=== PATIENT | male | born 1960 | race Caucasian/White ===

== ENCOUNTER 2016-06-29 13:18 | Observation (INO) | payer MEDICAID ==
[~2016-06-29] VITALS: Ht 175.3 cm; Wt 68.0 kg
[~2016-06-29 13:18] MED LIST: ALBU8.5H3 INH; ALLO100T30 PO; AMLO10TA2 PO; ASPI-496 PO; ASPI-515 PO; ATOR20TA9 PO; BENA20TA2 PO; CARV6.252 PO; CIPR100T PO; CLOP75TA PO; CLOP75TA22 PO; DOCU-30 PO; FURO20TA3 PO; FURO40TA6 PO; HYDR-3240 PO; HYDR-3307 PO; METF500T4 PO; OLAN10TA3 PO; OLAN10TA9 PO; OXYC10TA32 PO; OXYC1TAB7 PO; POTA20TA14 PO; TAMS-11 PO; TEMA15CA PO; TIOT18CA INH
[2016-06-29] MEDS ORDERED: MORPHINE SULFATE 4 MG/ML, 1ML IVPush PRN ×2 (14:00→15:30)
[2016-06-29] MEDS ORDERED: ASPIRIN 81 MG TABLET CHEW PO ONE (14:00)
[2016-06-29] MEDS ORDERED: SODIUM CHLORIDE FLUSH 10ML SYR IVF ONE (14:00)
[2016-06-29] MEDS ORDERED: ONDANSETRON 2MG/ML, 2ML IVPush ONE (14:00)
[2016-06-29 14:20] LABS: HEMOGLOBIN 15.6 g/dL (13.7-18.0)
[2016-06-29] MEDS ORDERED: MORPHINE SULFATE 4 MG/ML, 1ML ONE (14:27)
[2016-06-29] MEDS ORDERED: NITROGLYCERIN SINGLE TAB 0.4 MG SL ONE (14:28)
[2016-06-29] MEDS ORDERED: ONDANSETRON 2MG/ML, 2ML ONE (14:28)
[2016-06-29 14:34] LABS: BLOOD UREA NITROGEN 17 mg/dL (7-18)
[2016-06-29] MEDS: NITROGLYCERIN SINGLE TAB 0.4 MG SL PRN ×3 (14:35→14:45)
[2016-06-29 14:39] LABS: IS PT STATUS REG ER OR PRE ER? YES
[2016-06-29] MEDS ORDERED: ASPIRIN 81 MG TABLET CHEW ONE (14:52)
[2016-06-29] MEDS ORDERED: SODIUM CHLORIDE FLUSH 10ML SYR IVF PRN (15:00)
[2016-06-29] MEDS ORDERED: POLYETHYLENE GLYCOL 17 GM PACKET PO PRN (15:30)
[2016-06-29] MEDS ORDERED: DOCUSATE 100 MG CAPSULE PO PRN (15:30)
[2016-06-29] MEDS ORDERED: ACETAMINOPHEN 325 MG TABLET PO PRN (15:30)
[2016-06-29] MEDS ORDERED: TEMPLATE NON-FORMULARY MED. (Albuterol Sulfate (Proair Hfa) 0 PUFF) INH PRN (15:30)
[2016-06-29] MEDS ORDERED: ONDANSETRON 2MG/ML, 2ML IVP PRN (15:30)
[2016-06-29] MEDS ORDERED: BISACODYL 10 MG SUPP PR PRN (15:30)
[2016-06-29] MEDS ORDERED: LABETALOL 5MG/ML, 20ML IV PRN (15:30)
[2016-06-29] MEDS ORDERED: BENAZEPRIL 20 MG TABLET PO SCH (15:30)
[2016-06-29 17:34] VITALS: BP 160/100
[2016-06-29] MEDS: ENOXAPARIN 40 MG/0.4 ML SQ SCH (18:24)
[2016-06-29 18:30] LABS: IS PT STATUS REG ER OR PRE ER? NO
[2016-06-29 19:25] VITALS: BP 158/88
[2016-06-29] MEDS: HYDROcodone/APAP 5/325 TABLET PO PRN (20:57)
[2016-06-29] MEDS: SODIUM CHLORIDE FLUSH 10ML SYR IVF SCH (20:57)
[2016-06-29] MEDS ORDERED: NICOTINE 7 MG/24 HR PATCH.TD24 TD SCH (21:00)
[2016-06-29 23:04] VITALS: BP 164/92
[2016-06-30 00:44] LABS: IS PT STATUS REG ER OR PRE ER? NO
[2016-06-30 02:04] VITALS: BP 159/73
[2016-06-30 07:38] VITALS: BP 172/95
[2016-06-30] MEDS: SODIUM CHLORIDE FLUSH 10ML SYR IVF SCH (08:00)
[2016-06-30] MEDS ORDERED: REGADENOSON 0.4 MG/5 ML SYRINGE ONE (08:39)
[2016-06-30] MEDS ORDERED: AMLODIPINE 5 MG TABLET PO SCH (09:00)
[2016-06-30] MEDS ORDERED: ASPIRIN 81 MG TABLET EC PO SCH (09:00)
[2016-06-30] MEDS: HYDROcodone/APAP 5/325 TABLET PO PRN (12:42)
[2016-06-30] MEDS ORDERED: LABETALOL 5MG/ML, 20ML IV PRN (12:56)
[2016-06-30 13:34] VITALS: BP 158/90
[2016-06-30] MEDS ORDERED: HYDR-3240 PO (14:48)
[2016-06-30] MEDS: ENOXAPARIN 40 MG/0.4 ML SQ SCH (15:30)
[2016-06-30] MEDS ORDERED: AMLO10TA2 PO (20:32)
[2016-06-30] MEDS ORDERED: BENA20TA2 PO (20:32)
== END 2016-06-30 17:12 | disposition home or self-care (01) ==
LOC: ED 14:57 → INTOOBSV 14:58 → EDIP 14:58 → ED 14:59 → 4EST 16:47 → 5SO 22:56 → DCLOUNGE 06-30 17:04
PROVIDERS: ADMIT Internal Medicine; ATTEND Internal Medicine
DX: R07.9 Chest pain, unspecified (principal); I25.10 Atherosclerotic heart disease of native coronary artery without angina pectoris; I25.2 Old myocardial infarction; I11.9 Hypertensive heart disease without heart failure; F17.210 Nicotine dependence, cigarettes, uncomplicated; G30.9 Alzheimer's disease, unspecified; F02.80 Dementia in other diseases classified elsewhere, unspecified severity, without behavioral disturbance, psychotic disturbance, mood disturbance, and anxiety; E11.9 Type 2 diabetes mellitus without complications; J44.9 Chronic obstructive pulmonary disease, unspecified; F20.9 Schizophrenia, unspecified; M10.9 Gout, unspecified; E78.5 Hyperlipidemia, unspecified; M41.9 Scoliosis, unspecified; G89.29 Other chronic pain; M54.9 Dorsalgia, unspecified; M19.90 Unspecified osteoarthritis, unspecified site; Z59.0 Homelessness; Z87.11 Personal history of peptic ulcer disease; Z95.1 Presence of aortocoronary bypass graft; Z85.9 Personal history of malignant neoplasm, unspecified; Z91.19 Patient's noncompliance with other medical treatment and regimen
CPT/HCPCS: 36415; 71010; 78452; 80048; 80061; 82040; 83880; 84484; 85025; 93005; 93017; 96372; 96374; 96375; 99285; A9502; C9898; G0378; J1650; J2270; J2405; J2785

== ENCOUNTER 2016-07-03 01:17 | Emergency (ER) | payer MEDICAID ==
[~2016-07-03] VITALS: Ht 175.3 cm; Wt 70.2 kg
[2016-07-03 01:18] VITALS: BP 185/94
[2016-07-03] MEDS ORDERED: ACETAMINOPHEN 500 MG TABLET PO ONE (02:20)
[2016-07-03] MEDS ORDERED: ACETAMINOPHEN 500 MG TABLET ONE (02:20)
== END 2016-07-03 03:01 | disposition home or self-care (01) ==
LOC: ED 01:42
DX: S70.01XA Contusion of right hip, initial encounter (principal); I10 Essential (primary) hypertension; E11.9 Type 2 diabetes mellitus without complications; J44.9 Chronic obstructive pulmonary disease, unspecified; E78.5 Hyperlipidemia, unspecified; Z95.1 Presence of aortocoronary bypass graft; W19.XXXA Unspecified fall, initial encounter; Y93.89 Activity, other specified; Y99.8 Other external cause status; Y92.410 Unspecified street and highway as the place of occurrence of the external cause

== ENCOUNTER 2016-08-12 08:08 | Emergency (ER) | payer MEDICAID ==
[~2016-08-12] VITALS: Ht 175.3 cm; Wt 69.0 kg
[2016-08-12 08:10] VITALS: BP 156/83
== END 2016-08-12 09:58 | disposition home or self-care (01) ==
LOC: ED 09:52
DX: R07.89 Other chest pain (principal); J44.9 Chronic obstructive pulmonary disease, unspecified; E11.9 Type 2 diabetes mellitus without complications; I10 Essential (primary) hypertension; M19.90 Unspecified osteoarthritis, unspecified site; F20.9 Schizophrenia, unspecified; E78.5 Hyperlipidemia, unspecified
CPT/HCPCS: 36415; 84484; 93005

== ENCOUNTER 2016-08-21 00:09 | Emergency (ER) | payer MEDICAID ==
[~2016-08-21] VITALS: Ht 175.3 cm; Wt 70.3 kg
[2016-08-21 01:16] VITALS: BP 169/103
== END 2016-08-21 01:28 | disposition home or self-care (01) ==
LOC: ED 00:26
DX: S90.822A Blister (nonthermal), left foot, initial encounter (principal); M79.672 Pain in left foot; E11.9 Type 2 diabetes mellitus without complications; I10 Essential (primary) hypertension; Z95.1 Presence of aortocoronary bypass graft; J44.9 Chronic obstructive pulmonary disease, unspecified; X58.XXXA Exposure to other specified factors, initial encounter; Y93.89 Activity, other specified; Y99.8 Other external cause status; Y92.89 Other specified places as the place of occurrence of the external cause
CPT/HCPCS: 99281

== ENCOUNTER 2016-08-31 16:13 | Emergency (ER) | payer MEDICAID ==
[~2016-08-31] VITALS: Ht 175.3 cm; Wt 72.1 kg
[2016-08-31 16:15] VITALS: BP 160/86
[2016-08-31 17:52] LABS: BLOOD UREA NITROGEN 16 mg/dL (7-18)
[2016-08-31] MEDS ORDERED: HYDROcodone/APAP 5/325 TABLET PO ONE (18:00)
[2016-08-31] MEDS ORDERED: HYDROcodone/APAP 5/325 TABLET ONE (18:25)
== END 2016-08-31 19:09 | disposition home or self-care (01) ==
LOC: ED 18:20
DX: M79.672 Pain in left foot (principal); M79.671 Pain in right foot; M25.572 Pain in left ankle and joints of left foot; M25.571 Pain in right ankle and joints of right foot; I10 Essential (primary) hypertension; G62.9 Polyneuropathy, unspecified; G89.29 Other chronic pain; I25.10 Atherosclerotic heart disease of native coronary artery without angina pectoris; Z87.01 Personal history of pneumonia (recurrent); J44.9 Chronic obstructive pulmonary disease, unspecified; E11.9 Type 2 diabetes mellitus without complications; M10.9 Gout, unspecified; Z95.1 Presence of aortocoronary bypass graft
CPT/HCPCS: 36415; 80048; 83880; 85379; 99284

== ENCOUNTER 2016-09-06 17:34 | Emergency (ER) | payer MEDICAID ==
[~2016-09-06] VITALS: Ht 175.3 cm; Wt 71.1 kg
[2016-09-06 17:42] VITALS: BP 158/102
== END 2016-09-06 19:00 | disposition home or self-care (01) ==
LOC: ED 18:33
DX: K62.89 Other specified diseases of anus and rectum (principal); E78.5 Hyperlipidemia, unspecified; I10 Essential (primary) hypertension; E11.9 Type 2 diabetes mellitus without complications; M19.90 Unspecified osteoarthritis, unspecified site; J44.9 Chronic obstructive pulmonary disease, unspecified; M51.36 Other intervertebral disc degeneration, lumbar region; Z87.891 Personal history of nicotine dependence
CPT/HCPCS: 99283

== ENCOUNTER 2016-09-10 21:18 | Emergency (ER) | payer MEDICAID ==
[~2016-09-10] VITALS: Ht 175.3 cm; Wt 70.0 kg
[2016-09-10] MEDS ORDERED: ACETAMINOPHEN 325 MG TABLET PO ONE (22:00)
[2016-09-10] MEDS ORDERED: ACETAMINOPHEN 325 MG TABLET ONE (22:29)
[2016-09-10] MEDS ORDERED: HYDROcodone/APAP 5/325 TABLET PO ONE (23:30)
[2016-09-10 23:33] VITALS: BP 158/90
[2016-09-12] MEDS ORDERED: ONDANSETRON 2MG/ML, 2ML ONE (10:59)
[2016-09-12] MEDS ORDERED: morphine SULFATE 10 MG/ML, 1ML ONE (10:59)
== END 2016-09-10 23:38 | disposition home or self-care (01) ==
LOC: ED 22:06
DX: S02.601A Fracture of unspecified part of body of right mandible, initial encounter for closed fracture (principal); S02.612A Fracture of condylar process of left mandible, initial encounter for closed fracture; I10 Essential (primary) hypertension; E11.9 Type 2 diabetes mellitus without complications; J44.9 Chronic obstructive pulmonary disease, unspecified; Z87.891 Personal history of nicotine dependence; Y04.0XXA Assault by unarmed brawl or fight, initial encounter; Y93.89 Activity, other specified; Y99.8 Other external cause status; Y92.89 Other specified places as the place of occurrence of the external cause; Z95.1 Presence of aortocoronary bypass graft; I25.110 Atherosclerotic heart disease of native coronary artery with unstable angina pectoris; F20.9 Schizophrenia, unspecified
CPT/HCPCS: 70450; 70486; 72125

== ENCOUNTER 2016-09-12 10:34 | Inpatient (IN) | payer MEDICAID ==
[~2016-09-12] VITALS: Ht 165.1 cm; Wt 68.7 kg
[2016-09-12 15:48] VITALS: BP 206/119
[2016-09-12 17:48] VITALS: BP 159/87
[2016-09-12] MEDS ORDERED: hydrALAzine 20 MG/ML, 1ML IV PRN (19:00)
[2016-09-12 19:19] LABS: BLOOD UREA NITROGEN 16 mg/dL (7-18)
[2016-09-12 19:23] VITALS: BP 187/110
[2016-09-13] MEDS ORDERED: hydrALAzine 20 MG/ML, 1ML IV PRN ×2 (01:00→15:00)
[2016-09-13] MEDS ORDERED: ACETAMINOPHEN 650 MG SUPP PR PRN (01:00)
[2016-09-13 01:01] VITALS: BP 147/84
[2016-09-13] MEDS: LACTATED RINGERS 1,000 ML IV SCH ×2 (01:18→13:20)
[2016-09-13 06:44] VITALS: BP 133/73
[2016-09-13] MEDS: BENAZEPRIL 20 MG TABLET PO SCH (07:41)
[2016-09-13] MEDS: AMLODIPINE 5 MG TABLET PO SCH (07:42)
[2016-09-13] MEDS: MORPHINE SULFATE 4 MG/ML, 1ML IV PRN ×3 (07:55→22:11)
[2016-09-13] MEDS ORDERED: BALANCED SALT OPHTH IRRIG SOLN 18ML ONE (12:52)
[2016-09-13] MEDS ORDERED: OXYMETAZOLINE NASAL SPRAY 0.05%, 15ML ONE (12:52)
[2016-09-13] MEDS ORDERED: LIDOCAINE/PF 1%-EPI 1:200K, 30ML ONE (12:53)
[2016-09-13 12:58] LABS: BLOOD UREA NITROGEN 20 mg/dL (7-18)
[2016-09-13] MEDS ORDERED: MIDAZOLAM 1 MG/ML, 2ML ONE (12:58)
[2016-09-13] MEDS ORDERED: FENTANYL PF 250 MCG/5ML ONE (12:58)
[2016-09-13] MEDS ORDERED: CEFAZOLIN 1,000 MG ONE (13:05)
[2016-09-13] MEDS ORDERED: ONDANSETRON 2MG/ML, 2ML ONE (13:05)
[2016-09-13] MEDS ORDERED: LABETALOL 5MG/ML, 20ML ONE (13:05)
[2016-09-13] MEDS ORDERED: PROPOFOL 10 MG/ML, 20ML ONE (13:05)
[2016-09-13] MEDS ORDERED: SUCCINYLCHOLINE 20 MG/ML, 10ML ONE (13:05)
[2016-09-13] MEDS ORDERED: ROCURONIUM 10 MG/ML ONE (13:05)
[2016-09-13] MEDS ORDERED: LABETALOL 5MG/ML, 20ML IV PRN (15:00)
[2016-09-13] MEDS ORDERED: HYDROmorphone 1 MG/ML, 1ML IV PRN (15:00)
[2016-09-13] MEDS ORDERED: METOPROLOL 1 MG/ML, 5ML IV PRN (15:00)
[2016-09-13] MEDS ORDERED: PROMETHAZINE 25 MG/ML, 1ML IV PRN (15:00)
[2016-09-13] MEDS ORDERED: MEPERIDINE/PF 25MG/0.5ML IVPush PRN (15:00)
[2016-09-13] MEDS ORDERED: ONDANSETRON 2MG/ML, 2ML IVPush PRN (15:00)
[2016-09-13] MEDS ORDERED: OXYcodone 5 MG/5 ML ORAL.SOL UDC PO PRN (15:00)
[2016-09-13] MEDS ORDERED: MIDAZOLAM 1 MG/ML, 2ML IV PRN (15:00)
[2016-09-13] MEDS ORDERED: ALBUTEROL/IPRATROPIUM 2.5MG/0.5MG, 3 ML NPPB PRN (15:00)
[2016-09-13] MEDS ORDERED: FENTANYL PF 100 MCG/2ML IV PRN (15:00)
[2016-09-13] MEDS ORDERED: EPHEDRINE 50 MG/ML, 1ML IVPush PRN (15:00)
[2016-09-13] MEDS ORDERED: ALBUTEROL SULFATE 2.5 MG/3 ML NPPB PRN ×2 (15:00→18:30)
[2016-09-13] MEDS ORDERED: ACETAMINOPHEN 325 MG TABLET PO PRN (15:00)
[2016-09-13] MEDS ORDERED: ACETAMINOPHEN 650 MG/20.3 ML UDC ONE (15:42)
[2016-09-13] MEDS ORDERED: OXYcodone 5 MG/5 ML ORAL.SOL UDC ONE (16:23)
[2016-09-13] MEDS ORDERED: hydrALAzine 20 MG/ML, 1ML ONE (16:34)
[2016-09-13] MEDS ORDERED: DEXTROSE 50%, 50ML SYRINGE IVPush ONE (17:00)
[2016-09-13] MEDS ORDERED: ONDANSETRON 2MG/ML, 2ML IV PRN (18:30)
[2016-09-13 19:27] VITALS: BP 150/89
[2016-09-13 19:30] VITALS: BP 139/86
[2016-09-13 23:21] VITALS: BP 139/75
[2016-09-14 02:03] VITALS: BP 138/83
[2016-09-14] MEDS: MORPHINE SULFATE 4 MG/ML, 1ML IV PRN ×2 (02:29→05:50)
[2016-09-14 06:32] LABS: BLOOD UREA NITROGEN 20 mg/dL (7-18)
[2016-09-14 07:23] VITALS: BP 137/76
[2016-09-14] MEDS ORDERED: AMLODIPINE 5 MG TABLET PO SCH (09:00)
[2016-09-14] MEDS ORDERED: BENAZEPRIL 20 MG TABLET PO SCH (09:00)
[2016-09-14] MEDS: LACTATED RINGERS 1,000 ML IV SCH (09:24)
[2016-09-14] MEDS: AMLODIPINE 5 MG TABLET PO SCH (10:00)
[2016-09-14] MEDS: BENAZEPRIL 20 MG TABLET PO SCH (10:02)
[2016-09-14] MEDS ORDERED: HYDROmorphone 2MG TABLET ONE ×3 (12:59→22:27)
[2016-09-14] MEDS: HYDROmorphone 4MG TABLET PO PRN ×3 (13:01→22:33)
[2016-09-14 13:27] VITALS: BP 136/76
[2016-09-14] MEDS ORDERED: GUAIFENESIN/DM 100-10MG, 5ML UDC PO PRN (20:30)
[2016-09-14 20:33] VITALS: BP 139/84
[2016-09-14] MEDS: AMPICILLIN/SULBACTAM 3 GM in SODIUM CHLORIDE 0.9% 100 ML IV SCH (20:59)
[2016-09-14] MEDS: INSULIN ASPART 100 UNITS/ML, PEN SQ-INSULIN SCH (21:00)
[2016-09-15 01:42] VITALS: BP 138/67
[2016-09-15] MEDS ORDERED: HYDROmorphone 2MG TABLET ONE ×5 (02:45→22:06)
[2016-09-15] MEDS: AMPICILLIN/SULBACTAM 3 GM in SODIUM CHLORIDE 0.9% 100 ML IV SCH ×4 (02:48→20:47)
[2016-09-15] MEDS: HYDROmorphone 4MG TABLET PO PRN ×5 (02:48→22:18)
[2016-09-15 06:33] VITALS: BP 149/80
[2016-09-15] MEDS: INSULIN ASPART 100 UNITS/ML, PEN SQ-INSULIN SCH ×4 (07:00→20:50)
[2016-09-15] MEDS: BENAZEPRIL 20 MG TABLET PO SCH (08:11)
[2016-09-15] MEDS: AMLODIPINE 5 MG TABLET PO SCH (08:11)
[2016-09-15] MEDS: GUAIFENESIN ER 600 MG TABLET PO SCH ×2 (11:05→20:47)
[2016-09-15] MEDS: BENZONATATE 100 MG CAPSULE PO SCH ×3 (11:05→20:47)
[2016-09-15] MEDS ORDERED: GUAIFENESIN/DM 100-10MG, 5ML UDC PO PRN (12:30)
[2016-09-15 13:37] VITALS: BP 128/69
[2016-09-15 20:44] VITALS: BP 137/70
[2016-09-16 00:04] VITALS: BP 130/82
[2016-09-16 01:18] VITALS: BP 158/81
[2016-09-16] MEDS ORDERED: HYDROmorphone 2MG TABLET ONE ×2 (02:27→06:27)
[2016-09-16] MEDS: AMPICILLIN/SULBACTAM 3 GM in SODIUM CHLORIDE 0.9% 100 ML IV SCH ×4 (02:30→20:34)
[2016-09-16] MEDS: HYDROmorphone 4MG TABLET PO PRN ×2 (02:31→09:08)
[2016-09-16 05:07] LABS: BLOOD UREA NITROGEN 12 mg/dL (7-18)
[2016-09-16] MEDS: INSULIN ASPART 100 UNITS/ML, PEN SQ-INSULIN SCH ×4 (07:00→21:00)
[2016-09-16 08:51] VITALS: BP 151/88
[2016-09-16] MEDS: GUAIFENESIN ER 600 MG TABLET PO SCH ×2 (08:54→20:34)
[2016-09-16] MEDS: BENAZEPRIL 20 MG TABLET PO SCH (08:55)
[2016-09-16] MEDS: BENZONATATE 100 MG CAPSULE PO SCH ×3 (08:55→20:34)
[2016-09-16] MEDS: AMLODIPINE 5 MG TABLET PO SCH (08:55)
[2016-09-16] MEDS: FLUTICASONE/VILANTEROL 100-25MCG/INH INH SCH (10:42)
[2016-09-16 12:45] VITALS: BP 128/76
[2016-09-16] MEDS ORDERED: OXYcodone/APAP 5/325MG TABLET ONE ×2 (13:58)
[2016-09-16] MEDS: OXYcodone/APAP 5/325MG TABLET PO PRN ×2 (14:01→20:34)
[2016-09-16 19:35] VITALS: BP 121/75
[2016-09-17 02:05] VITALS: BP 156/99
[2016-09-17] MEDS: AMPICILLIN/SULBACTAM 3 GM in SODIUM CHLORIDE 0.9% 100 ML IV SCH ×4 (02:27→20:15)
[2016-09-17] MEDS: OXYcodone/APAP 5/325MG TABLET PO PRN ×5 (02:27→20:38)
[2016-09-17] MEDS: INSULIN ASPART 100 UNITS/ML, PEN SQ-INSULIN SCH (07:00)
[2016-09-17 08:11] VITALS: BP 134/89
[2016-09-17] MEDS: FLUTICASONE/VILANTEROL 100-25MCG/INH INH SCH (08:12)
[2016-09-17] MEDS: BENZONATATE 100 MG CAPSULE PO SCH ×3 (08:13→20:22)
[2016-09-17] MEDS: AMLODIPINE 5 MG TABLET PO SCH (08:13)
[2016-09-17] MEDS: GUAIFENESIN ER 600 MG TABLET PO SCH ×2 (08:13→20:22)
[2016-09-17] MEDS: BENAZEPRIL 20 MG TABLET PO SCH (08:14)
[2016-09-17 12:55] VITALS: BP 117/75
[2016-09-17 19:00] VITALS: BP 115/77
[2016-09-18 01:57] VITALS: BP 138/88
[2016-09-18] MEDS: OXYcodone/APAP 5/325MG TABLET PO PRN ×4 (02:28→16:29)
[2016-09-18] MEDS: AMPICILLIN/SULBACTAM 3 GM in SODIUM CHLORIDE 0.9% 100 ML IV SCH ×3 (02:32→14:46)
[2016-09-18 08:18] VITALS: BP 152/99
[2016-09-18] MEDS ORDERED: GUAI600T22 PO (08:19)
[2016-09-18] MEDS ORDERED: BENZ100C4 PO (08:19)
[2016-09-18] MEDS ORDERED: OXYC1TAB7 PO (08:19)
[2016-09-18] MEDS ORDERED: BENA20TA2 PO (08:19)
[2016-09-18] MEDS ORDERED: AMLO10TA2 PO (08:19)
[2016-09-18] MEDS ORDERED: ACID1TAB3 PO (08:19)
[2016-09-18] MEDS ORDERED: FLUT1AER INH (08:19)
[2016-09-18] MEDS ORDERED: ALBU8.5H3 INH (08:19)
[2016-09-18] MEDS ORDERED: CLIN300C93 PO (08:19)
[2016-09-18] MEDS: FLUTICASONE/VILANTEROL 100-25MCG/INH INH SCH (08:21)
[2016-09-18] MEDS: BENZONATATE 100 MG CAPSULE PO SCH ×2 (08:21→15:43)
[2016-09-18] MEDS: BENAZEPRIL 20 MG TABLET PO SCH (08:21)
[2016-09-18] MEDS: AMLODIPINE 5 MG TABLET PO SCH (08:22)
[2016-09-18] MEDS: GUAIFENESIN ER 600 MG TABLET PO SCH (08:22)
[2016-09-18 13:40] VITALS: BP 133/86
[2016-09-18 16:15] VITALS: BP 142/89
== END 2016-09-18 16:44 | disposition home or self-care (01) | DRG 131 ==
LOC: ED 10:34 → EDIP 15:34 → 3NE 16:11 → 4NOR 09-13 17:40
PROVIDERS: ADMIT Otolaryngology Facial Plastic Surgery
PROC: 0NSV04Z Reposition Left Mandible with Internal Fixation Device, Open Approach (ICD-10-PCS; 2016-09-13)
PROC: 0NST04Z Reposition Right Mandible with Internal Fixation Device, Open Approach (ICD-10-PCS; principal; 2016-09-13 13:00)
DX: S02.601A Fracture of unspecified part of body of right mandible, initial encounter for closed fracture (principal); J69.0 Pneumonitis due to inhalation of food and vomit; A41.9 Sepsis, unspecified organism; J96.01 Acute respiratory failure with hypoxia; S02.652A Fracture of angle of left mandible, initial encounter for closed fracture; S02.622A Fracture of subcondylar process of left mandible, initial encounter for closed fracture; J44.9 Chronic obstructive pulmonary disease, unspecified; I10 Essential (primary) hypertension; I25.10 Atherosclerotic heart disease of native coronary artery without angina pectoris; E11.9 Type 2 diabetes mellitus without complications; J02.9 Acute pharyngitis, unspecified; F20.9 Schizophrenia, unspecified; M10.9 Gout, unspecified; F17.210 Nicotine dependence, cigarettes, uncomplicated; X58.XXXA Exposure to other specified factors, initial encounter; Z82.49 Family history of ischemic heart disease and other diseases of the circulatory system; I25.2 Old myocardial infarction; Z87.11 Personal history of peptic ulcer disease; Y99.8 Other external cause status; Y92.89 Other specified places as the place of occurrence of the external cause; Y93.89 Activity, other specified; Z95.1 Presence of aortocoronary bypass graft; Z83.3 Family history of diabetes mellitus; Z80.1 Family history of malignant neoplasm of trachea, bronchus and lung; Z82.0 Family history of epilepsy and other diseases of the nervous system
CPT/HCPCS: 36415; 70486; 71010; 80048; 81001; 82040; 82962; 85025; 87070; 87086; 87205; 93005; 96374; C1713; J0295; J0690; J2250; J2405; J2704; J3010; J3490; J0330; J0360; J7120

== ENCOUNTER 2016-09-21 01:38 | Emergency (ER) | payer MEDICAID ==
[~2016-09-21] VITALS: Ht 175.3 cm; Wt 67.0 kg
[~2016-09-21 01:38] MED LIST changes: +ACID1TAB3 PO; +BENZ100C4 PO; +CLIN300C93 PO; +FLUT1AER INH; +GUAI600T22 PO
[2016-09-21 01:40] VITALS: BP 124/83
[2016-09-21] MEDS ORDERED: HYDROcodone/APAP 5/325 TABLET PO ONE (02:00)
[2016-09-21] MEDS ORDERED: HYDROcodone/APAP 5/325 TABLET ONE (02:08)
== END 2016-09-21 02:15 | disposition home or self-care (01) ==
LOC: ED 02:09
DX: R68.84 Jaw pain (principal); I10 Essential (primary) hypertension; E78.5 Hyperlipidemia, unspecified; I25.10 Atherosclerotic heart disease of native coronary artery without angina pectoris; J44.9 Chronic obstructive pulmonary disease, unspecified; M10.9 Gout, unspecified; M19.90 Unspecified osteoarthritis, unspecified site; E11.9 Type 2 diabetes mellitus without complications; Z87.01 Personal history of pneumonia (recurrent); M54.9 Dorsalgia, unspecified; G89.29 Other chronic pain; Z87.891 Personal history of nicotine dependence; Z95.1 Presence of aortocoronary bypass graft
CPT/HCPCS: 99282

== ENCOUNTER 2016-09-26 13:13 | Emergency (ER) | payer MEDICAID ==
[~2016-09-26] VITALS: Ht 175.3 cm; Wt 68.4 kg
[2016-09-26] MEDS ORDERED: SODIUM CHLORIDE 0.9% 1,000ML IVBOLUS ONE (13:30)
[2016-09-26] MEDS ORDERED: SODIUM CHLORIDE FLUSH 10ML SYR IVF ONE (13:30)
[2016-09-26] MEDS ORDERED: ACETAMINOPHEN 325 MG TABLET PO ONE (14:00)
[2016-09-26 14:16] LABS: BLOOD UREA NITROGEN 18 mg/dL (7-18)
[2016-09-26 14:23] LABS: ASPARTATE AMINO TRANSFERASE 4 U/L (15-37); IS PT STATUS REG ER OR PRE ER? YES
[2016-09-26] MEDS ORDERED: ACETAMINOPHEN 325 MG TABLET ONE (14:29)
[2016-09-26 16:00] VITALS: BP 143/101
[2016-09-26] MEDS ORDERED: HYDROcodone/APAP 5/325 TABLET PO ONE (16:00)
== END 2016-09-26 16:18 | disposition home or self-care (01) ==
LOC: ED 15:00
DX: E86.1 Hypovolemia (principal); Z72.9 Problem related to lifestyle, unspecified; E78.5 Hyperlipidemia, unspecified; I10 Essential (primary) hypertension; E11.9 Type 2 diabetes mellitus without complications; Z88.6 Allergy status to analgesic agent; F20.9 Schizophrenia, unspecified
CPT/HCPCS: 36415; 71010; 80053; 81003; 84484; 85025; 93005; 96360; 96361; 99285; J7030

== ENCOUNTER 2016-10-09 17:42 | Emergency (ER) | payer MEDICAID ==
[~2016-10-09] VITALS: Ht 165.1 cm; Wt 68.4 kg
[2016-10-09 17:56] VITALS: BP 151/89
[2016-10-09] MEDS ORDERED: OXYcodone/APAP 5/325MG TABLET PO ONE (19:30)
[2016-10-09] MEDS ORDERED: OXYcodone/APAP 5/325MG TABLET ONE (20:07)
== END 2016-10-09 20:41 | disposition home or self-care (01) ==
LOC: ED 20:20
DX: S02.2XXA Fracture of nasal bones, initial encounter for closed fracture (principal); E78.5 Hyperlipidemia, unspecified; I10 Essential (primary) hypertension; Z95.1 Presence of aortocoronary bypass graft; W22.8XXA Striking against or struck by other objects, initial encounter; Y93.89 Activity, other specified; Y99.8 Other external cause status; Y92.89 Other specified places as the place of occurrence of the external cause
CPT/HCPCS: 70450; 70486; 72125

== ENCOUNTER 2016-10-11 10:57 | Emergency (ER) | payer MEDICAID ==
[~2016-10-11] VITALS: Ht 175.3 cm; Wt 68.4 kg
[2016-10-11 11:00] VITALS: BP 155/86
[2016-10-11] MEDS ORDERED: HYDROcodone/APAP 5/325 TABLET PO ONE (11:30)
[2016-10-11] MEDS ORDERED: HYDROcodone/APAP 5/325 TABLET ONE (11:40)
== END 2016-10-11 12:19 | disposition home or self-care (01) ==
LOC: ED 11:10
DX: S02.2XXA Fracture of nasal bones, initial encounter for closed fracture (principal); J44.9 Chronic obstructive pulmonary disease, unspecified; E78.5 Hyperlipidemia, unspecified; I10 Essential (primary) hypertension; E11.9 Type 2 diabetes mellitus without complications; Z95.1 Presence of aortocoronary bypass graft; W01.0XXA Fall on same level from slipping, tripping and stumbling without subsequent striking against object, initial encounter; Y93.01 Activity, walking, marching and hiking; Y92.89 Other specified places as the place of occurrence of the external cause; Y99.8 Other external cause status
CPT/HCPCS: 70450; 99284

== ENCOUNTER 2016-10-22 12:08 | Emergency (ER) | payer MEDICAID ==
[~2016-10-22] VITALS: Ht 175.3 cm; Wt 69.7 kg
[2016-10-22] MEDS ORDERED: SODIUM CHLORIDE 0.9% 1,000ML IVBOLUS ONE (13:00)
[2016-10-22] MEDS ORDERED: ALBUTEROL SULFATE 2.5 MG/3 ML NPPB ONE (13:00)
[2016-10-22] MEDS ORDERED: ALBUTEROL SULFATE 2.5 MG/3 ML ONE (13:09)
[2016-10-22 13:12] LABS: BLOOD UREA NITROGEN 20 mg/dL (7-18)
[2016-10-22 13:17] LABS: IS PT STATUS REG ER OR PRE ER? YES
[2016-10-22 15:24] VITALS: BP 164/98
== END 2016-10-22 15:26 | disposition home or self-care (01) ==
LOC: ED 13:13
DX: R07.89 Other chest pain (principal); J44.1 Chronic obstructive pulmonary disease with (acute) exacerbation; M54.31 Sciatica, right side; Z76.0 Encounter for issue of repeat prescription
CPT/HCPCS: 36415; 71010; 80048; 82040; 84484; 85025; 93005; 94640; 96360; 99285; J7030; J7512; J7613

== ENCOUNTER 2016-10-28 05:24 | Emergency (ER) | payer MEDICAID ==
[~2016-10-28] VITALS: Ht 175.3 cm; Wt 67.9 kg
[2016-10-28 05:25] VITALS: BP 176/114
[2016-10-28] MEDS ORDERED: HYDROcodone/APAP 5/325 TABLET PO STA (05:41)
[2016-10-28] MEDS ORDERED: ASPIRIN 81 MG TABLET CHEW PO ONE (06:00)
[2016-10-28] MEDS ORDERED: ASPIRIN 81 MG TABLET CHEW ONE (06:05)
[2016-10-28] MEDS ORDERED: OXYcodone/APAP 5/325MG TABLET ONE (06:05)
[2016-10-28] MEDS ORDERED: HYDROcodone/APAP 5/325 TABLET ONE (06:07)
[2016-10-28 06:11] LABS: BLOOD UREA NITROGEN 17 mg/dL (7-18)
[2016-10-28 06:15] LABS: IS PT STATUS REG ER OR PRE ER? YES
== END 2016-10-28 07:25 | disposition home or self-care (01) ==
LOC: ED 05:44
DX: R07.2 Precordial pain (principal); J44.9 Chronic obstructive pulmonary disease, unspecified; E11.9 Type 2 diabetes mellitus without complications; E78.5 Hyperlipidemia, unspecified; F17.200 Nicotine dependence, unspecified, uncomplicated; I10 Essential (primary) hypertension; I25.110 Atherosclerotic heart disease of native coronary artery with unstable angina pectoris; Z95.1 Presence of aortocoronary bypass graft; J20.9 Acute bronchitis, unspecified; Z88.6 Allergy status to analgesic agent
CPT/HCPCS: 36415; 71010; 80048; 82040; 84484; 85025; 93005

== ENCOUNTER 2016-11-05 14:59 | Emergency (ER) | payer MEDICAID ==
[~2016-11-05] VITALS: Ht 175.3 cm; Wt 68.2 kg
[2016-11-05] MEDS ORDERED: SODIUM CHLORIDE 0.9% 1,000 ML IV ONE (15:42)
[2016-11-05] MEDS ORDERED: SODIUM CHLORIDE 0.9% 1,000ML IVBOLUS ONE (16:00)
[2016-11-05 16:10] LABS: BLOOD UREA NITROGEN 25 mg/dL (7-18)
[2016-11-05 16:15] LABS: ASPARTATE AMINO TRANSFERASE 11 U/L (15-37)
[2016-11-05 16:30] LABS: IS PT STATUS REG ER OR PRE ER? YES
[2016-11-05 17:07] VITALS: BP 158/98
== END 2016-11-05 17:09 | disposition home or self-care (01) ==
LOC: ED 17:03
DX: R42 Dizziness and giddiness (principal); J44.9 Chronic obstructive pulmonary disease, unspecified; G89.29 Other chronic pain; I10 Essential (primary) hypertension; I25.110 Atherosclerotic heart disease of native coronary artery with unstable angina pectoris; G62.9 Polyneuropathy, unspecified
CPT/HCPCS: 36415; 71010; 80053; 83690; 84484; 85025; 93005; 96360; 99285; J7030

== ENCOUNTER 2016-11-06 16:51 | Emergency (ER) | payer MEDICAID ==
[~2016-11-06] VITALS: Ht 175.3 cm; Wt 69.0 kg
[2016-11-06 16:56] VITALS: BP 137/87
[2016-11-06 17:44] LABS: ASPARTATE AMINO TRANSFERASE 11 U/L (15-37); BLOOD UREA NITROGEN 20 mg/dL (7-18)
== END 2016-11-06 18:24 | disposition home or self-care (01) ==
LOC: ED 18:18
DX: Z76.5 Malingerer [conscious simulation] (principal); Z72.89 Other problems related to lifestyle; Z60.8 Other problems related to social environment; E11.40 Type 2 diabetes mellitus with diabetic neuropathy, unspecified; I25.10 Atherosclerotic heart disease of native coronary artery without angina pectoris; I10 Essential (primary) hypertension; M10.9 Gout, unspecified; M19.90 Unspecified osteoarthritis, unspecified site; J44.9 Chronic obstructive pulmonary disease, unspecified; F20.9 Schizophrenia, unspecified; F17.200 Nicotine dependence, unspecified, uncomplicated; Z95.1 Presence of aortocoronary bypass graft; Z88.6 Allergy status to analgesic agent
CPT/HCPCS: 36415; 80053; 85025; 93005; 99285

== ENCOUNTER 2016-12-01 16:11 | Emergency (ER) | payer MEDICAID ==
[~2016-12-01] VITALS: Ht 175.3 cm; Wt 68.9 kg
[~2016-12-01 16:11] MED LIST changes: -ALBU8.5H3 INH; +ALBU8.5H8 INH; +BENZ100C17 PO; -BENZ100C4 PO; -CIPR100T PO; +CIPR100T3 PO; +CLIN300C8 PO; -CLIN300C93 PO; -CLOP75TA22 PO; +CLOP75TA52 PO; +DOCU-131 PO; -DOCU-30 PO; -GUAI600T22 PO; +GUAI600T31 PO; -OXYC10TA32 PO; +OXYC10TA47 PO
[2016-12-01 16:14] VITALS: BP 156/86
[2016-12-01] MEDS ORDERED: UNKNOWN INHALER INH (16:45)
== END 2016-12-01 17:20 | disposition home or self-care (01) ==
LOC: ED 17:14
DX: J44.1 Chronic obstructive pulmonary disease with (acute) exacerbation (principal); E78.5 Hyperlipidemia, unspecified; I25.10 Atherosclerotic heart disease of native coronary artery without angina pectoris; I10 Essential (primary) hypertension; E11.9 Type 2 diabetes mellitus without complications; F17.200 Nicotine dependence, unspecified, uncomplicated; Z95.1 Presence of aortocoronary bypass graft; Z88.6 Allergy status to analgesic agent
CPT/HCPCS: 99283

== ENCOUNTER 2016-12-28 03:20 | Emergency (ER) | payer MEDICAID ==
[~2016-12-28] VITALS: Ht 175.3 cm; Wt 69.6 kg
[~2016-12-28 03:20] MED LIST changes: +UNKNOWN INHALER INH
[2016-12-28 04:21] LABS: HEMATOCRIT 42.9 % (39.2-51.8); HEMOGLOBIN 14.4 g/dL (13.7-18.0); WHITE BLOOD COUNT 10.7 x10^3/uL (3.4-10)
[2016-12-28 04:32] LABS: BLOOD UREA NITROGEN 25 mg/dL (7-18)
[2016-12-28 04:52] LABS: IS PT STATUS REG ER OR PRE ER? YES
[2016-12-28 05:09] VITALS: BP 167/104
== END 2016-12-28 05:12 | disposition home or self-care (01) ==
LOC: ED 04:03
DX: J20.9 Acute bronchitis, unspecified (principal); I10 Essential (primary) hypertension; E78.5 Hyperlipidemia, unspecified; Z88.6 Allergy status to analgesic agent; Z95.1 Presence of aortocoronary bypass graft
CPT/HCPCS: 36415; 71020; 80048; 82040; 84484; 85025; 93005; 99285

== ENCOUNTER 2017-01-09 19:43 | Emergency (ER) | payer MEDICAID ==
[~2017-01-09] VITALS: Ht 175.3 cm; Wt 70.1 kg
[2017-01-09 19:44] VITALS: BP 155/97
[2017-01-09] MEDS ORDERED: DEXAMETHASONE 4 MG TABLET ONE ×2 (20:05)
[2017-01-09] MEDS ORDERED: DEXAMETHASONE 4 MG TABLET PO ONE (20:30)
== END 2017-01-09 20:35 | disposition home or self-care (01) ==
LOC: ED 20:29
DX: J00 Acute nasopharyngitis [common cold] (principal); R05 Cough; J44.9 Chronic obstructive pulmonary disease, unspecified; M54.9 Dorsalgia, unspecified; G89.29 Other chronic pain; F20.9 Schizophrenia, unspecified; E78.5 Hyperlipidemia, unspecified; I25.10 Atherosclerotic heart disease of native coronary artery without angina pectoris; Z95.1 Presence of aortocoronary bypass graft
CPT/HCPCS: 87081; 87880; 99284

== ENCOUNTER 2017-01-13 14:57 | Emergency (ER) | payer MEDICAID ==
[~2017-01-13] VITALS: Ht 175.3 cm; Wt 68.4 kg
[2017-01-13 15:00] VITALS: BP 156/84
[2017-01-13] MEDS ORDERED: ACETAMINOPHEN 500 MG TABLET PO ONE (15:45)
[2017-01-13] MEDS ORDERED: ACETAMINOPHEN 500 MG TABLET ONE (16:06)
== END 2017-01-13 16:45 | disposition home or self-care (01) ==
LOC: ED 16:00
DX: S33.5XXA Sprain of ligaments of lumbar spine, initial encounter (principal); I10 Essential (primary) hypertension; W19.XXXA Unspecified fall, initial encounter; Y93.89 Activity, other specified; Y99.8 Other external cause status; Y92.410 Unspecified street and highway as the place of occurrence of the external cause
CPT/HCPCS: 72110; 99284

== ENCOUNTER 2017-01-19 16:29 | Emergency (ER) | payer MEDICAID ==
[~2017-01-19] VITALS: Ht 175.3 cm; Wt 67.6 kg
[2017-01-19 16:35] VITALS: BP 145/88
== END 2017-01-19 17:17 | disposition home or self-care (01) ==
LOC: ED 17:11
DX: Z76.0 Encounter for issue of repeat prescription (principal); J44.1 Chronic obstructive pulmonary disease with (acute) exacerbation; E78.5 Hyperlipidemia, unspecified; M19.90 Unspecified osteoarthritis, unspecified site; F25.9 Schizoaffective disorder, unspecified; I10 Essential (primary) hypertension; E11.40 Type 2 diabetes mellitus with diabetic neuropathy, unspecified
CPT/HCPCS: 71020; 99284

== ENCOUNTER 2017-01-25 02:06 | Emergency (ER) | payer MEDICAID ==
[~2017-01-25] VITALS: Ht 175.3 cm; Wt 70.8 kg
[2017-01-25 02:07] VITALS: BP 175/112
[2017-01-25] MEDS ORDERED: KETOROLAC 30 MG/1 ML ONE (03:39)
[2017-01-25] MEDS ORDERED: KETOROLAC 30 MG/1 ML IM ONE (04:00)
== END 2017-01-25 04:12 | disposition home or self-care (01) ==
LOC: ED 04:06
DX: S39.012A Strain of muscle, fascia and tendon of lower back, initial encounter (principal); M54.41 Lumbago with sciatica, right side; E78.5 Hyperlipidemia, unspecified; M41.9 Scoliosis, unspecified; I25.110 Atherosclerotic heart disease of native coronary artery with unstable angina pectoris; F20.9 Schizophrenia, unspecified; M19.90 Unspecified osteoarthritis, unspecified site; J44.9 Chronic obstructive pulmonary disease, unspecified; E11.40 Type 2 diabetes mellitus with diabetic neuropathy, unspecified; I10 Essential (primary) hypertension; X58.XXXA Exposure to other specified factors, initial encounter; Y93.89 Activity, other specified; Y92.89 Other specified places as the place of occurrence of the external cause; Y99.8 Other external cause status; Z95.1 Presence of aortocoronary bypass graft
CPT/HCPCS: 96372; 99283; J1885; J7512

== ENCOUNTER 2017-01-26 05:20 | Emergency (ER) | payer MEDICAID ==
[~2017-01-26] VITALS: Ht 175.3 cm; Wt 73.6 kg
[2017-01-26 05:21] VITALS: BP 159/96
== END 2017-01-26 07:51 | disposition home or self-care (01) ==
LOC: ED 05:51
DX: S63.511A Sprain of carpal joint of right wrist, initial encounter (principal); E11.9 Type 2 diabetes mellitus without complications; I10 Essential (primary) hypertension; J44.9 Chronic obstructive pulmonary disease, unspecified; W50.0XXA Accidental hit or strike by another person, initial encounter; Y93.89 Activity, other specified; Y92.89 Other specified places as the place of occurrence of the external cause; Y99.8 Other external cause status
CPT/HCPCS: 29125; 99284

== ENCOUNTER 2017-01-27 23:55 | Emergency (ER) | payer MEDICAID ==
[~2017-01-27] VITALS: Ht 175.3 cm; Wt 73.4 kg
[2017-01-27 23:56] VITALS: BP 166/109
== END 2017-01-28 01:20 | disposition left against medical advice (07) ==
LOC: ED 23:59
DX: M79.672 Pain in left foot (principal); M79.671 Pain in right foot; E78.5 Hyperlipidemia, unspecified; M54.9 Dorsalgia, unspecified; G89.29 Other chronic pain; F20.9 Schizophrenia, unspecified; I10 Essential (primary) hypertension; J44.9 Chronic obstructive pulmonary disease, unspecified; M10.9 Gout, unspecified; M19.90 Unspecified osteoarthritis, unspecified site; Z59.0 Homelessness
CPT/HCPCS: 93005; 99283

== ENCOUNTER 2017-02-21 17:29 | Emergency (ER) | payer MEDICAID ==
[~2017-02-21] VITALS: Ht 175.3 cm; Wt 73.7 kg
[~2017-02-21 17:29] MED LIST changes: +BENZ-17 PO; -BENZ100C17 PO
[2017-02-21] MEDS ORDERED: ACETAMINOPHEN 325 MG TABLET PO ONE (18:30)
[2017-02-21] MEDS ORDERED: ACETAMINOPHEN 325 MG TABLET ONE (18:34)
[2017-02-21 19:44] VITALS: BP 161/76
== END 2017-02-21 19:50 | disposition home or self-care (01) ==
LOC: ED 18:19
DX: M25.571 Pain in right ankle and joints of right foot (principal); J02.9 Acute pharyngitis, unspecified; J44.9 Chronic obstructive pulmonary disease, unspecified; I10 Essential (primary) hypertension; F20.9 Schizophrenia, unspecified; E78.5 Hyperlipidemia, unspecified; I25.810 Atherosclerosis of coronary artery bypass graft(s) without angina pectoris; M54.9 Dorsalgia, unspecified; G89.29 Other chronic pain
CPT/HCPCS: 71020; 99284

== ENCOUNTER 2017-03-19 16:41 | Emergency (ER) | payer MEDICAID ==
[~2017-03-19] VITALS: Ht 175.3 cm; Wt 75.2 kg
[2017-03-19 17:36] LABS: HEMATOCRIT 44.6 % (39.2-51.8); HEMOGLOBIN 14.6 g/dL (13.7-18.0); WHITE BLOOD COUNT 6.8 x10^3/uL (3.4-10)
[2017-03-19 17:49] LABS: BLOOD UREA NITROGEN 17 mg/dL (7-18)
[2017-03-19 20:03] VITALS: BP 153/93
== END 2017-03-19 20:05 | disposition home or self-care (01) ==
LOC: ED 18:44
DX: R60.0 Localized edema (principal); J44.9 Chronic obstructive pulmonary disease, unspecified; E78.5 Hyperlipidemia, unspecified; E11.9 Type 2 diabetes mellitus without complications; I10 Essential (primary) hypertension; I25.810 Atherosclerosis of coronary artery bypass graft(s) without angina pectoris; Z95.1 Presence of aortocoronary bypass graft; F17.200 Nicotine dependence, unspecified, uncomplicated; Z88.8 Allergy status to other drugs, medicaments and biological substances
CPT/HCPCS: 36415; 71020; 80048; 82040; 83880; 85025; 93005; 99285

== ENCOUNTER 2017-03-27 21:18 | Emergency (ER) | payer MEDICAID ==
[~2017-03-27] VITALS: Ht 175.3 cm; Wt 74.9 kg
[2017-03-27] MEDS: AMLODIPINE 5 MG TABLET PO ONE (22:14)
[2017-03-27 22:58] VITALS: BP 185/118
== END 2017-03-27 23:00 | disposition home or self-care (01) ==
LOC: ED 22:09
DX: Z76.0 Encounter for issue of repeat prescription (principal); I10 Essential (primary) hypertension; E11.9 Type 2 diabetes mellitus without complications; E78.5 Hyperlipidemia, unspecified; F20.9 Schizophrenia, unspecified; I25.110 Atherosclerotic heart disease of native coronary artery with unstable angina pectoris; J44.9 Chronic obstructive pulmonary disease, unspecified; M10.9 Gout, unspecified; M19.90 Unspecified osteoarthritis, unspecified site; Z95.1 Presence of aortocoronary bypass graft
CPT/HCPCS: 99283

== ENCOUNTER 2017-04-04 21:38 | Emergency (ER) | payer MEDICAID ==
[~2017-04-04] VITALS: Ht 175.3 cm; Wt 76.2 kg
[2017-04-04 21:40] VITALS: BP 176/92
[2017-04-04] MEDS ORDERED: FLUORESCEIN OPHTHALMIC 1 MG STRIP ONE (23:20)
[2017-04-04] MEDS ORDERED: PROPARACAINE OPHTH 0.5%, 15ML ONE (23:20)
== END 2017-04-04 23:48 | disposition home or self-care (01) ==
LOC: ED 22:53
DX: H10.022 Other mucopurulent conjunctivitis, left eye (principal); E78.5 Hyperlipidemia, unspecified; F17.200 Nicotine dependence, unspecified, uncomplicated; F20.9 Schizophrenia, unspecified; I10 Essential (primary) hypertension; I25.110 Atherosclerotic heart disease of native coronary artery with unstable angina pectoris; J44.9 Chronic obstructive pulmonary disease, unspecified; M10.9 Gout, unspecified; M19.90 Unspecified osteoarthritis, unspecified site; Z95.1 Presence of aortocoronary bypass graft
CPT/HCPCS: 99283

== ENCOUNTER 2017-04-09 03:43 | Emergency (ER) | payer MEDICAID ==
[~2017-04-09] VITALS: Ht 175.3 cm; Wt 73.0 kg
[2017-04-09 03:45] VITALS: BP 172/109
[2017-04-10] MEDS ORDERED: ALBU0.63 NEB (05:41)
[2017-04-10] MEDS ORDERED: PRED10TA14 PO (05:42)
== END 2017-04-09 04:24 | disposition home or self-care (01) ==
LOC: ED 04:10
DX: B34.9 Viral infection, unspecified (principal); I10 Essential (primary) hypertension; E78.5 Hyperlipidemia, unspecified; J44.9 Chronic obstructive pulmonary disease, unspecified; I25.110 Atherosclerotic heart disease of native coronary artery with unstable angina pectoris; E11.9 Type 2 diabetes mellitus without complications
CPT/HCPCS: 93005; 99283

== ENCOUNTER 2017-04-09 15:03 | Emergency (ER) | payer MEDICAID ==
[~2017-04-09] VITALS: Ht 175.3 cm; Wt 73.3 kg
[2017-04-09 15:52] LABS: RAPID INFLUENZA A Negative (Negative); RAPID INFLUENZA B Negative (Negative)
[2017-04-09 15:57] VITALS: BP 169/89
[2017-04-10] MEDS ORDERED: ALBU0.63 NEB (05:41)
[2017-04-10] MEDS ORDERED: PRED10TA14 PO (05:42)
== END 2017-04-09 16:26 | disposition home or self-care (01) ==
LOC: ED 16:20
DX: J00 Acute nasopharyngitis [common cold] (principal)
CPT/HCPCS: 71046; 87400; 93005

== ENCOUNTER 2017-04-10 05:32 | Emergency (ER) | payer MEDICAID ==
[~2017-04-10] VITALS: Ht 175.3 cm; Wt 70.0 kg
[2017-04-10] MEDS ORDERED: ALBU0.63 NEB (05:41)
[2017-04-10] MEDS ORDERED: PRED10TA14 PO (05:42)
[2017-04-10 06:17] VITALS: BP 168/90
== END 2017-04-10 06:20 | disposition home or self-care (01) ==
LOC: ED 06:06
DX: I10 Essential (primary) hypertension (principal); F17.200 Nicotine dependence, unspecified, uncomplicated; F15.90 Other stimulant use, unspecified, uncomplicated
CPT/HCPCS: 99283

== ENCOUNTER 2017-04-18 19:07 | Emergency (ER) | payer MEDICAID ==
[~2017-04-18] VITALS: Ht 175.3 cm; Wt 65.0 kg
[~2017-04-18 19:07] MED LIST changes: +ALBU0.63 NEB; +PRED10TA14 PO
[2017-04-18] MEDS ORDERED: SODIUM CHLORIDE FLUSH 10ML SYR IVF ONE (19:30)
[2017-04-18 20:37] LABS: BASOPHILS # (AUTO) 0.22 x10^3/uL (0-0.1); BASOPHILS % (AUTO) 2 % (0-1); EOSINOPHILS # (AUTO) 0.21 x10^3/uL (0-0.4); EOSINOPHILS % (AUTO) 2 % (1-7); LYMPHOCYTES # (AUTO) 2.56 x10^3/uL (1-3.4); LYMPHOCYTES % (AUTO) 22 % (22-44); MD NO; MEAN CORPUSCULAR HEMOGLOBIN 30.9 pg (27.5-34.5); MEAN CORPUSCULAR HGB CONC 33.7 g/dL (33.2-36.2); MEAN CORPUSCULAR VOLUME 91.7 fL (81-97); MEAN PLATELET VOLUME 8.2 fL (7.4-10.4); MONOCYTES # (AUTO) 1.05 x10^3/uL (0.2-0.8); MONOCYTES % (AUTO) 9 % (2-9); NEUTROPHILS # (AUTO) 7.89 x10^3/uL (1.8-6.8); NEUTROPHILS % (AUTO) 66 % (42-75); PLATELET COUNT 335 x10^3/uL (130-400); RED BLOOD COUNT 5.28 x10^6/uL (4.38-5.82); RED CELL DISTRIBUTION WIDTH 14.5 % (9.4-14.8)
[2017-04-18 20:47] LABS: ALBUMIN 3.4 g/dL (3.4-5.0); ANION GAP 6 mmol/L (5-15); CALCIUM 9.1 mg/dL (8.5-10.1); CHLORIDE 104 mmol/L (98-107); CREATININE 0.83 mg/dL (0.7-1.3)
[2017-04-18 21:42] VITALS: BP 162/97
== END 2017-04-18 21:42 | disposition home or self-care (01) ==
LOC: ED 21:35
DX: R05 Cough (principal); J44.1 Chronic obstructive pulmonary disease with (acute) exacerbation; I10 Essential (primary) hypertension; E11.9 Type 2 diabetes mellitus without complications; I25.110 Atherosclerotic heart disease of native coronary artery with unstable angina pectoris; M41.9 Scoliosis, unspecified; Z95.1 Presence of aortocoronary bypass graft; Z88.8 Allergy status to other drugs, medicaments and biological substances
CPT/HCPCS: 36415; 71046; 80048; 82040; 85025; 99285

== ENCOUNTER 2017-05-16 20:44 | Emergency (ER) | payer MEDICAID ==
[~2017-05-16] VITALS: Ht 175.3 cm; Wt 74.9 kg
[2017-05-16 21:02] VITALS: BP 152/99
== END 2017-05-16 22:33 | disposition left against medical advice (07) ==
LOC: ED 22:27
DX: R05 Cough (principal); R09.81 Nasal congestion; R51 Headache

== ENCOUNTER 2017-05-20 04:50 | Emergency (ER) | payer MEDICAID ==
[~2017-05-20] VITALS: Ht 175.3 cm; Wt 74.4 kg
[2017-05-20 05:32] VITALS: BP 168/116
== END 2017-05-20 06:22 | disposition home or self-care (01) ==
LOC: ED 05:23
DX: Z76.0 Encounter for issue of repeat prescription (principal); R06.09 Other forms of dyspnea; F20.89 Other schizophrenia; I10 Essential (primary) hypertension; E78.5 Hyperlipidemia, unspecified; G89.29 Other chronic pain; J44.9 Chronic obstructive pulmonary disease, unspecified; M10.9 Gout, unspecified; M19.90 Unspecified osteoarthritis, unspecified site; M41.9 Scoliosis, unspecified; I25.10 Atherosclerotic heart disease of native coronary artery without angina pectoris
CPT/HCPCS: 82962; 93005; 99283

== ENCOUNTER 2017-05-21 15:22 | Emergency (ER) | payer MEDICAID ==
[~2017-05-21] VITALS: Ht 175.3 cm; Wt 77.4 kg
[2017-05-21 15:24] VITALS: BP 141/98
== END 2017-05-21 16:46 | disposition home or self-care (01) ==
LOC: ED 16:40
DX: M79.672 Pain in left foot (principal); M79.671 Pain in right foot; R23.8 Other skin changes; E78.5 Hyperlipidemia, unspecified; E11.9 Type 2 diabetes mellitus without complications; I25.10 Atherosclerotic heart disease of native coronary artery without angina pectoris
CPT/HCPCS: 82962; 99281

== ENCOUNTER 2017-05-28 19:20 | Emergency (ER) | payer MEDICAID ==
[~2017-05-28] VITALS: Ht 175.3 cm; Wt 76.3 kg
[2017-05-28 19:21] VITALS: BP 154/97
[2017-05-28] MEDS ORDERED: ACETAMINOPHEN 325 MG TABLET ONE (20:25)
[2017-05-28 20:27] LABS: BASOPHILS # (AUTO) 0.05 x10^3/uL (0-0.1); BASOPHILS % (AUTO) 1 % (0-1); EOSINOPHILS # (AUTO) 0.11 x10^3/uL (0-0.4); EOSINOPHILS % (AUTO) 1 % (1-7); LYMPHOCYTES # (AUTO) 1.69 x10^3/uL (1-3.4); LYMPHOCYTES % (AUTO) 20 % (22-44); MD NO; MEAN CORPUSCULAR HGB CONC 32.3 g/dL (33.2-36.2); MEAN PLATELET VOLUME 7.9 fL (7.4-10.4); MONOCYTES # (AUTO) 0.59 x10^3/uL (0.2-0.8); MONOCYTES % (AUTO) 7 % (2-9); NEUTROPHILS # (AUTO) 5.89 x10^3/uL (1.8-6.8); NEUTROPHILS % (AUTO) 71 % (42-75); PLATELET COUNT 284 x10^3/uL (130-400); RED BLOOD COUNT 4.82 x10^6/uL (4.38-5.82); RED CELL DISTRIBUTION WIDTH 16.1 % (9.4-14.8)
[2017-05-28 20:30] LABS: RAPID INFLUENZA A Negative (Negative); RAPID INFLUENZA B Negative (Negative)
[2017-05-28] MEDS ORDERED: ACETAMINOPHEN 325 MG TABLET PO ONE (20:30)
[2017-05-28 20:35] LABS: ALBUMIN 3.5 g/dL (3.4-5.0); ANION GAP 7 mmol/L (5-15); CALCIUM 8.7 mg/dL (8.5-10.1); CHLORIDE 108 mmol/L (98-107)
[2017-05-28 20:36] LABS: CREATININE 0.87 mg/dL (0.7-1.3)
== END 2017-05-28 21:05 | disposition home or self-care (01) ==
LOC: ED 20:59
DX: R05 Cough (principal); E78.5 Hyperlipidemia, unspecified; I25.10 Atherosclerotic heart disease of native coronary artery without angina pectoris; J44.9 Chronic obstructive pulmonary disease, unspecified; E11.40 Type 2 diabetes mellitus with diabetic neuropathy, unspecified; Z95.1 Presence of aortocoronary bypass graft
CPT/HCPCS: 36415; 71046; 80048; 82040; 85025; 87400; 99285

== ENCOUNTER 2017-06-06 15:39 | Emergency (ER) | payer MEDICAID ==
[~2017-06-06] VITALS: Ht 175.3 cm; Wt 69.0 kg
[2017-06-06 15:53] VITALS: BP 159/101
[2017-06-06] MEDS ORDERED: MAALOX/HYOSCYAMINE/LIDOCAINE 45 ML BTL PO ONE (16:00)
[2017-06-06 16:41] LABS: BASOPHILS # (AUTO) 0.07 x10^3/uL (0-0.1); BASOPHILS % (AUTO) 1 % (0-1); EOSINOPHILS % (AUTO) 2 % (1-7); LYMPHOCYTES # (AUTO) 2.46 x10^3/uL (1-3.4); LYMPHOCYTES % (AUTO) 29 % (22-44); MD NO; MEAN CORPUSCULAR HEMOGLOBIN 30.6 pg (27.5-34.5); MEAN CORPUSCULAR HGB CONC 32.6 g/dL (33.2-36.2); MEAN CORPUSCULAR VOLUME 93.7 fL (81-97); MEAN PLATELET VOLUME 8.1 fL (7.4-10.4); MONOCYTES # (AUTO) 0.77 x10^3/uL (0.2-0.8); MONOCYTES % (AUTO) 9 % (2-9); NEUTROPHILS # (AUTO) 4.88 x10^3/uL (1.8-6.8); NEUTROPHILS % (AUTO) 58 % (42-75); PLATELET COUNT 300 x10^3/uL (130-400); RED BLOOD COUNT 4.96 x10^6/uL (4.38-5.82); RED CELL DISTRIBUTION WIDTH 16.6 % (9.4-14.8)
[2017-06-06 16:47] LABS: ANION GAP 6 mmol/L (5-15); CALCIUM 8.7 mg/dL (8.5-10.1); CHLORIDE 107 mmol/L (98-107); CREATININE 0.92 mg/dL (0.7-1.3)
[2017-06-06 16:48] LABS: ALANINE AMINOTRANSFERASE 23 U/L (12-78); ALBUMIN 3.6 g/dL (3.4-5.0)
[2017-06-06 16:49] LABS: ALKALINE PHOSPHATASE 90 U/L (45-117); BILIRUBIN,TOTAL 0.4 mg/dL (0.2-1.0); TOTAL PROTEIN 7.3 g/dL (6.4-8.2)
== END 2017-06-06 19:22 | disposition left against medical advice (07) ==
LOC: ED 15:45
DX: R10.9 Unspecified abdominal pain (principal); R19.7 Diarrhea, unspecified
CPT/HCPCS: 36415; 80053; 83690; 85025; 99284

== ENCOUNTER 2017-07-03 22:58 | Emergency (ER) | payer MEDICAID ==
[~2017-07-03] VITALS: Ht 177.8 cm; Wt 77.9 kg
[2017-07-03 22:59] VITALS: BP 194/108
== END 2017-07-03 23:34 | disposition home or self-care (01) ==
LOC: ED 23:15
DX: M77.9 Enthesopathy, unspecified (principal); M19.90 Unspecified osteoarthritis, unspecified site; I10 Essential (primary) hypertension; E78.5 Hyperlipidemia, unspecified; I25.10 Atherosclerotic heart disease of native coronary artery without angina pectoris; J44.9 Chronic obstructive pulmonary disease, unspecified; E11.9 Type 2 diabetes mellitus without complications; F20.9 Schizophrenia, unspecified; M41.9 Scoliosis, unspecified; Z95.1 Presence of aortocoronary bypass graft; Z88.8 Allergy status to other drugs, medicaments and biological substances
CPT/HCPCS: 99281

== ENCOUNTER 2017-07-14 13:08 | Emergency (ER) | payer MEDICAID ==
[~2017-07-14] VITALS: Ht 177.8 cm; Wt 73.0 kg
[2017-07-14 13:25] VITALS: BP 166/114
[2017-07-14] MEDS ORDERED: BENAZEPRIL 10 MG TABLET PO ONE (14:00)
[2017-07-14] MEDS ORDERED: AMLODIPINE 5 MG TABLET PO ONE (14:00)
[2017-07-14] MEDS ORDERED: AMLODIPINE 5 MG TABLET ONE (14:05)
== END 2017-07-14 14:54 | disposition home or self-care (01) ==
LOC: ED 14:30
DX: J44.9 Chronic obstructive pulmonary disease, unspecified (principal); J32.0 Chronic maxillary sinusitis; Z72.9 Problem related to lifestyle, unspecified; I10 Essential (primary) hypertension; E78.5 Hyperlipidemia, unspecified; F20.9 Schizophrenia, unspecified; G89.29 Other chronic pain; I25.10 Atherosclerotic heart disease of native coronary artery without angina pectoris; M10.9 Gout, unspecified; M19.90 Unspecified osteoarthritis, unspecified site; M41.9 Scoliosis, unspecified; Z76.0 Encounter for issue of repeat prescription; Z95.1 Presence of aortocoronary bypass graft
CPT/HCPCS: 71046; 99284

== ENCOUNTER 2017-07-24 06:14 | Emergency (ER) | payer MEDICAID ==
[~2017-07-24] VITALS: Ht 177.8 cm; Wt 76.4 kg
[2017-07-24 06:15] VITALS: BP 176/112
[2017-07-24] MEDS ORDERED: HYDROcodone/APAP 5/325 TABLET PO ONE (07:00)
[2017-07-24] MEDS ORDERED: HYDROcodone/APAP 5/325 TABLET ONE (07:03)
== END 2017-07-24 07:59 | disposition home or self-care (01) ==
LOC: ED 06:45
DX: J00 Acute nasopharyngitis [common cold] (principal); I10 Essential (primary) hypertension; F17.210 Nicotine dependence, cigarettes, uncomplicated
CPT/HCPCS: 99283

== ENCOUNTER 2017-08-15 22:49 | Emergency (ER) | payer MEDICAID ==
[~2017-08-15] VITALS: Ht 177.8 cm; Wt 74.2 kg
[2017-08-15] MEDS ORDERED: DEXAMETHASONE 4 MG TABLET ONE (23:12)
[2017-08-15 23:17] VITALS: BP 174/110
[2017-08-15] MEDS ORDERED: DEXAMETHASONE 4 MG TABLET PO ONE (23:30)
== END 2017-08-15 23:27 | disposition home or self-care (01) ==
LOC: ED 23:10
DX: J02.8 Acute pharyngitis due to other specified organisms (principal); B97.89 Other viral agents as the cause of diseases classified elsewhere; E78.5 Hyperlipidemia, unspecified; I25.10 Atherosclerotic heart disease of native coronary artery without angina pectoris; F20.9 Schizophrenia, unspecified; G89.29 Other chronic pain; J44.9 Chronic obstructive pulmonary disease, unspecified; E11.40 Type 2 diabetes mellitus with diabetic neuropathy, unspecified; I10 Essential (primary) hypertension; F17.200 Nicotine dependence, unspecified, uncomplicated; Z88.6 Allergy status to analgesic agent
CPT/HCPCS: 99283

== ENCOUNTER 2017-09-16 11:35 | Emergency (ER) | payer MEDICAID ==
[~2017-09-16] VITALS: Ht 152.4 cm; Wt 71.8 kg
[2017-09-16 11:36] VITALS: BP 161/109
== END 2017-09-16 13:11 | disposition home or self-care (01) ==
LOC: ED 12:18
DX: J00 Acute nasopharyngitis [common cold] (principal); F17.200 Nicotine dependence, unspecified, uncomplicated; I10 Essential (primary) hypertension; J44.9 Chronic obstructive pulmonary disease, unspecified; E11.9 Type 2 diabetes mellitus without complications
CPT/HCPCS: 71046; 99284

== ENCOUNTER 2017-09-23 03:53 | Emergency (ER) | payer MEDICAID ==
[~2017-09-23] VITALS: Ht 177.8 cm; Wt 73.0 kg
[2017-09-23 03:57] VITALS: BP 173/114
== END 2017-09-23 05:16 | disposition home or self-care (01) ==
LOC: ED 04:43
DX: B34.9 Viral infection, unspecified (principal); I10 Essential (primary) hypertension; Z91.14 Patient's other noncompliance with medication regimen; Z95.1 Presence of aortocoronary bypass graft
CPT/HCPCS: 99283

== ENCOUNTER 2017-10-17 04:18 | Emergency (ER) | payer MEDICAID ==
[~2017-10-17] VITALS: Ht 172.7 cm; Wt 80.0 kg
[~2017-10-17 04:18] MED LIST changes: -METF500T4 PO; +METF500T5 PO
[2017-10-17 04:20] VITALS: BP 152/99
== END 2017-10-17 06:02 | disposition home or self-care (01) ==
LOC: ED 05:59
DX: J30.2 Other seasonal allergic rhinitis (principal); I10 Essential (primary) hypertension; E78.5 Hyperlipidemia, unspecified
CPT/HCPCS: 87081; 87880; 99284

== ENCOUNTER 2017-12-23 14:11 | Emergency (ER) | payer MEDICAID ==
[~2017-12-23] VITALS: Ht 177.8 cm; Wt 73.8 kg
[~2017-12-23 14:11] MED LIST changes: -AMLO10TA2 PO; +AMLO10TA6 PO; -BENA20TA2 PO; +BENA20TA4 PO; +METF500T17 PO; -METF500T5 PO
[2017-12-23 14:52] LABS: BASOPHILS # (AUTO) 0.11 x10^3/uL (0-0.1); BASOPHILS % (AUTO) 1 % (0-1); EOSINOPHILS # (AUTO) 0.14 x10^3/uL (0-0.4); EOSINOPHILS % (AUTO) 2 % (1-7); LYMPHOCYTES # (AUTO) 2.18 x10^3/uL (1-3.4); LYMPHOCYTES % (AUTO) 23 % (22-44); MD NO; MEAN CORPUSCULAR HEMOGLOBIN 31.3 pg (27.5-34.5); MEAN CORPUSCULAR HGB CONC 33.3 g/dL (33.2-36.2); MEAN PLATELET VOLUME 8.1 fL (7.4-10.4); MONOCYTES # (AUTO) 0.77 x10^3/uL (0.2-0.8); MONOCYTES % (AUTO) 8 % (2-9); NEUTROPHILS # (AUTO) 6.43 x10^3/uL (1.8-6.8); NEUTROPHILS % (AUTO) 67 % (42-75); PLATELET COUNT 284 x10^3/uL (130-400); RED BLOOD COUNT 4.89 x10^6/uL (4.38-5.82); RED CELL DISTRIBUTION WIDTH 13.8 % (9.4-14.8)
[2017-12-23 14:58] LABS: ALBUMIN 3.7 g/dL (3.4-5.0); ANION GAP 9 mmol/L (5-15); CALCIUM 9.6 mg/dL (8.5-10.1); CHLORIDE 106 mmol/L (98-107)
[2017-12-23 15:02] LABS: ALANINE AMINOTRANSFERASE 23 U/L (12-78); ALKALINE PHOSPHATASE 106 U/L (45-117); BILIRUBIN,TOTAL 0.7 mg/dL (0.2-1.0); TOTAL PROTEIN 7.6 g/dL (6.4-8.2)
[2017-12-23 15:17] LABS: CULTURE INDICATED? YES; MICROSCOPIC INDICATED
[2017-12-23] MEDS ORDERED: ACETAMINOPHEN 500 MG TABLET PO ONE (15:30)
[2017-12-23] MEDS ORDERED: ACETAMINOPHEN 500 MG TABLET ONE (15:42)
[2017-12-23 16:00] VITALS: BP 178/112
== END 2017-12-23 16:14 | disposition home or self-care (01) ==
LOC: ED 16:00
DX: N30.00 Acute cystitis without hematuria (principal); I10 Essential (primary) hypertension; E78.5 Hyperlipidemia, unspecified; J44.9 Chronic obstructive pulmonary disease, unspecified; G89.29 Other chronic pain; M19.90 Unspecified osteoarthritis, unspecified site; F20.9 Schizophrenia, unspecified; E11.9 Type 2 diabetes mellitus without complications; M10.9 Gout, unspecified; I25.810 Atherosclerosis of coronary artery bypass graft(s) without angina pectoris; F17.200 Nicotine dependence, unspecified, uncomplicated; Z88.8 Allergy status to other drugs, medicaments and biological substances; Z88.6 Allergy status to analgesic agent; M41.9 Scoliosis, unspecified
CPT/HCPCS: 36415; 74176; 80053; 81001; 85025; 87086; 99285

== ENCOUNTER 2018-01-20 16:30 | Emergency (ER) | payer MEDICAID ==
[~2018-01-20] VITALS: Ht 177.8 cm; Wt 73.4 kg
[2018-01-20 16:51] VITALS: BP 168/94
== END 2018-01-20 18:24 | disposition home or self-care (01) ==
LOC: ED 17:39
DX: S91.302A Unspecified open wound, left foot, initial encounter (principal); S91.301A Unspecified open wound, right foot, initial encounter; I10 Essential (primary) hypertension; E78.5 Hyperlipidemia, unspecified; I25.10 Atherosclerotic heart disease of native coronary artery without angina pectoris; J44.9 Chronic obstructive pulmonary disease, unspecified; E11.40 Type 2 diabetes mellitus with diabetic neuropathy, unspecified; F17.200 Nicotine dependence, unspecified, uncomplicated; X58.XXXA Exposure to other specified factors, initial encounter; Y93.89 Activity, other specified; Y99.8 Other external cause status; Y92.410 Unspecified street and highway as the place of occurrence of the external cause
CPT/HCPCS: 99281

== ENCOUNTER 2018-01-27 06:59 | Emergency (ER) | payer MEDICAID ==
[~2018-01-27] VITALS: Ht 177.8 cm; Wt 73.0 kg
[2018-01-27 07:54] VITALS: BP 145/59
== END 2018-01-27 07:57 | disposition home or self-care (01) ==
LOC: ED 07:32
DX: B34.9 Viral infection, unspecified (principal); Z76.0 Encounter for issue of repeat prescription; J44.9 Chronic obstructive pulmonary disease, unspecified; G89.29 Other chronic pain; I10 Essential (primary) hypertension; I25.10 Atherosclerotic heart disease of native coronary artery without angina pectoris; E78.5 Hyperlipidemia, unspecified; E11.40 Type 2 diabetes mellitus with diabetic neuropathy, unspecified
CPT/HCPCS: 99283

== ENCOUNTER 2018-02-07 14:56 | Emergency (ER) | payer MEDICAID ==
[~2018-02-07] VITALS: Ht 177.8 cm; Wt 75.3 kg
[2018-02-07 15:30] LABS: RAPID INFLUENZA A Negative (Negative); RAPID INFLUENZA B Negative (Negative)
[2018-02-07 15:57] LABS: BASOPHILS # (AUTO) 0.09 x10^3/uL (0-0.1); BASOPHILS % (AUTO) 1 % (0-1); EOSINOPHILS # (AUTO) 0.18 x10^3/uL (0-0.4); EOSINOPHILS % (AUTO) 2 % (1-7); LYMPHOCYTES # (AUTO) 2.15 x10^3/uL (1-3.4); LYMPHOCYTES % (AUTO) 18 % (22-44); MD NO; MEAN CORPUSCULAR HEMOGLOBIN 31.2 pg (27.5-34.5); MEAN CORPUSCULAR HGB CONC 32.9 g/dL (33.2-36.2); MEAN CORPUSCULAR VOLUME 94.7 fL (81-97); MONOCYTES % (AUTO) 7 % (2-9); NEUTROPHILS # (AUTO) 8.83 x10^3/uL (1.8-6.8); NEUTROPHILS % (AUTO) 73 % (42-75); PLATELET COUNT 316 x10^3/uL (130-400); RED BLOOD COUNT 4.59 x10^6/uL (4.38-5.82); RED CELL DISTRIBUTION WIDTH 14.2 % (9.4-14.8)
[2018-02-07 16:05] LABS: ALANINE AMINOTRANSFERASE 23 U/L (12-78); ALBUMIN 3.3 g/dL (3.4-5.0); ANION GAP 8 mmol/L (5-15); CALCIUM 8.4 mg/dL (8.5-10.1); CHLORIDE 109 mmol/L (98-107); CREATININE 0.83 mg/dL (0.7-1.3)
[2018-02-07 16:10] LABS: ALKALINE PHOSPHATASE 95 U/L (45-117); BILIRUBIN,TOTAL 0.4 mg/dL (0.2-1.0); TOTAL PROTEIN 6.6 g/dL (6.4-8.2); TROPONIN I < 0.015 ng/mL (0.000-0.045)
[2018-02-07 16:49] VITALS: BP 172/92
== END 2018-02-07 17:25 | disposition home or self-care (01) ==
LOC: ED 16:00
DX: M94.0 Chondrocostal junction syndrome [Tietze] (principal); J06.9 Acute upper respiratory infection, unspecified; I10 Essential (primary) hypertension; E78.5 Hyperlipidemia, unspecified; I25.10 Atherosclerotic heart disease of native coronary artery without angina pectoris; F20.9 Schizophrenia, unspecified; J44.9 Chronic obstructive pulmonary disease, unspecified; E11.9 Type 2 diabetes mellitus without complications; Z95.1 Presence of aortocoronary bypass graft
CPT/HCPCS: 36415; 71046; 80053; 84484; 85025; 87400; 93005; 99285

== ENCOUNTER 2018-02-22 06:20 | Emergency (ER) | payer MEDICAID ==
[~2018-02-22] VITALS: Ht 177.8 cm; Wt 74.3 kg
[2018-02-22 08:12] VITALS: BP 146/89
== END 2018-02-22 08:23 | disposition home or self-care (01) ==
LOC: ED 08:03
DX: J00 Acute nasopharyngitis [common cold] (principal); M79.18 Myalgia, other site; E11.9 Type 2 diabetes mellitus without complications; I10 Essential (primary) hypertension; F17.200 Nicotine dependence, unspecified, uncomplicated; E78.5 Hyperlipidemia, unspecified; J44.9 Chronic obstructive pulmonary disease, unspecified; F20.9 Schizophrenia, unspecified; I25.10 Atherosclerotic heart disease of native coronary artery without angina pectoris; Z72.9 Problem related to lifestyle, unspecified; Z87.11 Personal history of peptic ulcer disease
CPT/HCPCS: 71046; 93005; 99284

== ENCOUNTER 2018-03-03 16:26 | Emergency (ER) | payer MEDICAID ==
[~2018-03-03] VITALS: Ht 177.8 cm; Wt 75.0 kg
[2018-03-03 17:52] LABS: MEAN CORPUSCULAR HEMOGLOBIN 31.4 pg (27.5-34.5); MEAN CORPUSCULAR HGB CONC 33.2 g/dL (33.2-36.2); MEAN CORPUSCULAR VOLUME 94.7 fL (81-97); MEAN PLATELET VOLUME 7.8 fL (7.4-10.4); PLATELET COUNT 268 x10^3/uL (130-400); RED BLOOD COUNT 4.79 x10^6/uL (4.38-5.82); RED CELL DISTRIBUTION WIDTH 13.7 % (9.4-14.8)
[2018-03-03 18:02] LABS: ALANINE AMINOTRANSFERASE 26 U/L (12-78); ALBUMIN 3.6 g/dL (3.4-5.0); ANION GAP 7 mmol/L (5-15); CALCIUM 8.4 mg/dL (8.5-10.1); CHLORIDE 108 mmol/L (98-107)
[2018-03-03 18:04] LABS: ALKALINE PHOSPHATASE 112 U/L (45-117); BILIRUBIN,TOTAL 0.9 mg/dL (0.2-1.0); TOTAL PROTEIN 7.5 g/dL (6.4-8.2)
[2018-03-03 18:09] LABS: BASOPHILS # (AUTO) 0.02 x10^3/uL (0-0.1); BASOPHILS % (AUTO) 0 % (0-1); EOSINOPHILS # (AUTO) 0.13 x10^3/uL (0-0.4); EOSINOPHILS % (AUTO) 1 % (1-7); LYMPHOCYTES % (AUTO) 7 % (22-44); MD SCAN; MONOCYTES # (AUTO) 0.65 x10^3/uL (0.2-0.8); MONOCYTES % (AUTO) 5 % (2-9); NEUTROPHILS # (AUTO) 10.44 x10^3/uL (1.8-6.8); NEUTROPHILS % (AUTO) 86 % (42-75)
[2018-03-03 18:38] VITALS: BP 176/102
== END 2018-03-03 18:40 | disposition home or self-care (01) ==
LOC: ED 18:13
DX: R19.7 Diarrhea, unspecified (principal); I10 Essential (primary) hypertension; E78.5 Hyperlipidemia, unspecified; I25.10 Atherosclerotic heart disease of native coronary artery without angina pectoris
CPT/HCPCS: 36415; 80053; 85025; 99283

== ENCOUNTER 2018-03-18 12:50 | Emergency (ER) | payer MEDICAID ==
[~2018-03-18] VITALS: Ht 177.8 cm; Wt 76.5 kg
[~2018-03-18 12:50] MED LIST changes: +ATOR20TA37 PO; -ATOR20TA9 PO
[2018-03-18 13:34] LABS: MEAN CORPUSCULAR HEMOGLOBIN 31.8 pg (27.5-34.5); MEAN CORPUSCULAR HGB CONC 33.4 g/dL (33.2-36.2); MEAN CORPUSCULAR VOLUME 95.2 fL (81-97); MEAN PLATELET VOLUME 7.8 fL (7.4-10.4); PLATELET COUNT 430 x10^3/uL (130-400); RED BLOOD COUNT 4.64 x10^6/uL (4.38-5.82); RED CELL DISTRIBUTION WIDTH 13.7 % (9.4-14.8)
[2018-03-18 13:43] LABS: ALBUMIN 3.3 g/dL (3.4-5.0); ANION GAP 7 mmol/L (5-15); CALCIUM 8.1 mg/dL (8.5-10.1); CHLORIDE 105 mmol/L (98-107)
[2018-03-18 13:48] LABS: CREATININE 0.84 mg/dL (0.7-1.3); TROPONIN I < 0.015 ng/mL (0.000-0.045)
[2018-03-18 13:54] LABS: MD YES
[2018-03-18 13:56] LABS: EOS#(MANUAL) 0.38 x10^3/uL (0.0-0.4); EOS% (MANUAL) 3 % (1-7); LYMPH#(MANUAL) 2.02 x10^3/uL (1-3.4); LYMPHS% (MANUAL) 16 % (22-44); METAMYELOCYTES# (MANUAL) 0.13 x10^3/uL (0-0); METAMYELOCYTES% (MANUAL) 1 % (0-1); MONOS#(MANUAL) 0.88 x10^3/uL (0.3-2.7); MONOS% (MANUAL) 7 % (2-9); SEGS% (MANUAL) 73 % (42-75)
[2018-03-18 13:57] LABS: <RBC MORPHOLOGY> NORMAL
[2018-03-18 13:58] LABS: <PLATELET ESTIMATE> INCREASED; <PLT MORPHOLOGY> NORMAL PLT MORPH
[2018-03-18 15:07] VITALS: BP 161/106
== END 2018-03-18 15:18 | disposition home or self-care (01) ==
LOC: ED 15:13
DX: J44.1 Chronic obstructive pulmonary disease with (acute) exacerbation (principal); E78.5 Hyperlipidemia, unspecified; I25.10 Atherosclerotic heart disease of native coronary artery without angina pectoris; F20.9 Schizophrenia, unspecified; G89.29 Other chronic pain; M19.90 Unspecified osteoarthritis, unspecified site; E11.9 Type 2 diabetes mellitus without complications; M10.9 Gout, unspecified; I10 Essential (primary) hypertension; Z87.891 Personal history of nicotine dependence; Z88.6 Allergy status to analgesic agent; Z95.1 Presence of aortocoronary bypass graft
CPT/HCPCS: 36415; 71046; 80048; 82040; 84484; 85025; 93005; 99284

== ENCOUNTER 2018-03-25 06:11 | Emergency (ER) | payer MEDICAID ==
[~2018-03-25] VITALS: Ht 177.8 cm; Wt 76.9 kg
[2018-03-25] MEDS ORDERED: IBUPROFEN 200 MG TABLET PO ONE (06:30)
[2018-03-25] MEDS ORDERED: IBUPROFEN 200 MG TABLET ONE (06:34)
[2018-03-25 07:44] LABS: RAPID INFLUENZA A Negative (Negative); RAPID INFLUENZA B Negative (Negative)
[2018-03-25 08:17] VITALS: BP 158/113
== END 2018-03-25 08:19 | disposition home or self-care (01) ==
LOC: ED 06:38
DX: B34.9 Viral infection, unspecified (principal); E11.9 Type 2 diabetes mellitus without complications; I10 Essential (primary) hypertension; J44.9 Chronic obstructive pulmonary disease, unspecified; I25.10 Atherosclerotic heart disease of native coronary artery without angina pectoris; M19.90 Unspecified osteoarthritis, unspecified site; I20.0 Unstable angina; Z72.9 Problem related to lifestyle, unspecified; Z87.11 Personal history of peptic ulcer disease; Z87.19 Personal history of other diseases of the digestive system
CPT/HCPCS: 71046; 87400; 99284